=== PATIENT | female | born 1995 | race Caucasian/White ===

== ENCOUNTER 2021-01-20 02:42 | Emergency (ER) | payer BC ==
[~2021-01-20] VITALS: Ht 170.2 cm; Wt 130.9 kg
[2021-01-20] MEDS ORDERED: dexamethasone sod phosphate 10mg/ml inj IV STA (03:39)
[2021-01-20] MEDS ORDERED: normal saline 1000ML IV soln IVB ONE (03:40)
[2021-01-20] MEDS ORDERED: ondansetron/PF 4mg/2ml inj IV ONE ×2 (03:40→06:30)
[2021-01-20] MEDS ORDERED: DEXA6TAB6 PO (06:06)
[2021-01-20] MEDS ORDERED: BUDE180A INH (06:06)
[2021-01-20] MEDS ORDERED: ONDA4TAB6 PO (06:11)
[2021-01-20 08:53] VITALS: BP 119/75
== END 2021-01-20 08:00 | disposition home or self-care (01) ==
LOC: ER 02:43
DX: U07.1 COVID-19 (principal); R05.9 Cough, unspecified; M79.10 Myalgia, unspecified site; R11.2 Nausea with vomiting, unspecified; Z90.89 Acquired absence of other organs; Z79.899 Other long term (current) drug therapy
CPT/HCPCS: 96374; 96375; 99284; J1100; J2405; J7030; 96361